=== PATIENT | male | born 1990 | race Caucasian/White ===

== ENCOUNTER 2016-09-02 08:01 | Emergency (ER) | payer OTHER ==
[~2016-09-02] VITALS: Ht 177.8 cm; Wt 79.5 kg
[2016-09-02 08:03] VITALS: BP 123/76; PULSE 82; RESP 14; O2SAT 98
--- NOTE | 2016-09-02 08:11 | ED.REPORT ---
HPI-Extremity Problem Lower Date of Service Sep 02, 2016 ED Provider: Noah Yap DO A 25 year old male presents to the ED complaining of puncture wound in right foot. The patient stepped on a nail at a construction site 48 hours ago. Per nurse note, the patient could see the nail poking up through the top of the foot but it did not break the skin. Nursing Notes Stated Complaint: RT FOOT STEPPED ON A NAIL Chief Complaint: Extremity Trauma Nursing Notes Reviewed: Yes Allergies: Coded Allergies: aspirin (Verified Allergy, 09/04/12) Scheduled Ciprofloxacin (Cipro) 500 Mg Tablet 500 MG PO BID Sulfamethoxazole/Trimeth 800-160 mg (Bactrim DS) 1 Each Tablet 1 TABLET PO BID General Time Seen by MD: 08:10 Chief Complaint Foot injury right (Puncture wound) Hx Obtained From: Patient Arrived By: Walk-in Onset Occurred: 2 days ago Symptom Duration: Since onset Recent Healthcare: No recent doctor visit Similar Sx Previous: No Past Medical History Past Medical History None reported. Past Surgical History None reported. 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 Ambulatory Status Independent Review of Systems Review of Systems Note: Puncture in right foot. Complete sys rev & neg: except as marked. Respiratory: Denies: Non-productive cough Physical Exam Initial Vital Signs Vital Signs (First) Date Time Temp Pulse Resp B/P Pulse Ox O2 Delivery O2 Flow Rate FiO2 09/02/16 08:03 36.2 82 14 123/76 98 Room Air Initial VS: Reviewed Puncture inbetween 2nd and 3rd toe on plantar aspect of right foot. Mild erythema in area. No mass swelling. No fluctance. General/Constitutional: Awake, Alert Respiratory / Chest: Atraumatic, Breath sounds NL, Breath sounds = bilat, No respiratory distress, No rales, No rhonchi, No wheezing Skin: Atraumatic, Color NL, Warm, Dry Neurologic: Oriented X3, Speech NL Head / Eyes: Atraumatic, Normocephalic, PERRL, EOMI ENT: Atraumatic, Mucous membranes moist Neck: Atraumatic, Full range of motion Abdomen: Atraumatic, No guarding, No rebound Back: Atraumatic, Full range of motion Upper Extremity / MS: Atraumatic, Full range of motion Wrist / Hand: Atraumatic, Full range of motion Interpretation & Diagnostics X-Ray Interpretation Xray Interpretation: Foot Xray Impression: No fracture, no gas, no foreign body. Interpretation / Wet Read by: Wet read ED physician ([id number]) Re-Eval/Medical Decision Med Decision/Clinical Course Bactrim and ciprofloxacin prescribed. Same-day follow-up with podiatry initiated. return precautions given Re-Evaluation/Progress : Time of Eval: 08:35 Re-Evaluation/Progress Note: Rechecked patient. Explained plan for patient to see [facility]. Patient understands and agrees with the plan. All questions addressed. Consultation : Referral / Consult Name: Mitch Hendricks DPM Consulted With: Orthopedic Call Returned at: 08:34 Operations Label Clerk: Will see patient, Agrees with eval, Agrees with plan Note: Discussed patient case with Dr. Hendricks who agrees to see the patient. Counseled Regarding: Diagnosis, Lab results, Need for follow-up, When/why to return to ED Discharge & Departure Impression: Primary Impression: Puncture wound Disposition: Home Discharge Condition All VS Reviewed: Yes Condition: Improved Additional Instructions: Go directly to podiatry. Take ciprofloxacin and Bactrim as prescribed. Return to the ER or follow up with podiatry as needed for worsening symptoms. Referrals: OTHER,PHYSICIAN (PCP) Maraibe Attestation Portions of this note were transcribed by Hermann Ron. I, Dr. Yap personally performed the history, physical exam and medical decision-making; I reviewed and confirmed the accuracy of the information in the transcribed note. Signed by: Abhay Bolton, 09/02/2016 0853. copies to: SVITLANA,Noah Guerra DO Sep 02, 2016 08:11 Hermann Ron Sep 02, 2016 08:21
[2016-09-02] MEDS ORDERED: Trimethoprim-Sulfa 160 mg-800 mg Tablet PO ONE (08:25)
[2016-09-02] MEDS ORDERED: SULF1TAB7 PO (08:42)
[2016-09-02] MEDS ORDERED: CIPR-231 PO (08:42)
--- NOTE | 2016-09-02 09:40 | DRSVH ---
PROCEDURE: X-RAY RIGHT FOOT COMPLETE, MINIMUM THREE VIEWS ([id number]) INDICATIONS: step on nail TECHNIQUE: 3 views of the foot were acquired. COMPARISON: None. FINDINGS: Bones: No fractures or dislocations. No suspicious bony lesions. Soft tissues: No tibiotalar joint effusion. Achilles tendon appears normal. IMPRESSION: Although no bony erosions are identified, plain film radiography is relatively insensiti ve in the acute phases of osteomyelitis and may not demonstrate radiographic changes for 15 days. If acute osteomyelitis is of clinical concern, nuclear medicine regional bone scan or MRI is recommende d. Dictated by: Toby Bai [facility] Interpreted: Idalmis Amin MD on 09/02/2016 at 9:39 Transcribed by: UNIQUE on 09/02/2016 at 9:40 Approved by: Idalmis Amin M.D. on 09/04/2016 at 16:04
== END 2016-09-02 08:45 | disposition home or self-care (01) ==
LOC: SED 08:01
DX: S91.331A Puncture wound without foreign body, right foot, initial encounter (principal); W45.0XXA Nail entering through skin, initial encounter; Y93.89 Activity, other specified; Y92.69 Other specified industrial and construction area as the place of occurrence of the external cause; Y99.8 Other external cause status; Z88.8 Allergy status to other drugs, medicaments and biological substances

== ENCOUNTER 2016-09-04 17:17 | Emergency (ER) | payer OTHER ==
[~2016-09-04] VITALS: Ht 177.8 cm; Wt 86.4 kg
[~2016-09-04 17:17] MED LIST: CIPR-231 PO; SULF1TAB7 PO
[2016-09-04 17:32] VITALS: BP 136/83; PULSE 89; RESP 16; O2SAT 99
[2016-09-04 18:44] LABS: BASOPHILS % (AUTO) 0.3 % (0-3); EOSINOPHILS % (AUTO) 2.7 % (0-5); MONOCYTES % (AUTO) 5.4 % (4-12); Mean Corpuscular Hemoglobin 28.5 pg (27.0-35.0); Mean Corpuscular Volume 83.3 fL (81-100); NEUTROPHILS % (AUTO) 66.1 % (40-74); Platelet Count 301 bil/L (150-400)
--- NOTE | 2016-09-04 19:18 | ED.REPORT ---
HPI-Headache Date of Service Sep 04, 2016 ED Provider: Mike Olsen MD Pt is a 25 y/o male presenting to the ED c/o vague headache and myalgias onset today. He states he stepped on nail 4 days ago and was referred to a gunnery/ordnance officer Dr. Ruiz who reviewed his x-rays and told him to come to the ED if he developed any other symptoms to rule out infection. Pt denies fever, chills, N/V /D, abdominal pain. Nursing Notes Stated Complaint: BODY ACHES, HEADACHES Chief Complaint: Headache Nursing Notes Reviewed: Yes Allergies: Coded Allergies: aspirin (Verified Allergy, Unknown, 09/04/16) No Active Prescriptions or Reported Meds General Time Seen by MD: 18:45 Chief Complaint Headache Hx Obtained From: Patient Arrived By: Walk-in Sudden in Onset?: No Onset Occurred: 9 - 12 hours ago Symptom Duration: Since onset Location: : Generalized Quality: Aching Severity: Current: Mild Severity: Maximum: Mild Recent Healthcare: Recent doctor visit Past Medical History Past Medical History None reported. Past Surgical History None reported. 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 Ambulatory Status Independent Review of Systems Constitutional: Denies: Chills, Fever, Lethargy, Weakness - generalized GI: Denies: Abdominal pain, Diarrhea, Nausea, Vomiting Musculoskeletal: Reports: Myalgia, Denies: Extremity pain, Extremity swelling Skin: Denies Itching, Denies Rash Neurologic: Reports: Headache, Denies: Abnormal movement, Bladder dysfunction, Bowel dysfunction, Change LOC , Confusion, Dizziness, Focal weakness, Lightheaded, Numbness, Problem walking, Seizure, Shaking, Slurred speech, Spinning sensation, Syncope, Unable to speak, Vision change, Weakness Complete sys rev & neg: except as marked. Physical Exam Initial Vital Signs Vital Signs (First) Date Time Temp Pulse Resp B/P Pulse Ox O2 Delivery O2 Flow Rate FiO2 09/04/16 17:32 36.6 89 16 136/83 99 Room Air Initial VS: Reviewed ENT: Mucous membranes moist, Conjunctiva normal, No scleral icterus Respiratory: Breath sounds normal, Clear to auscultation, No respiratory distress Cardiovascular: Regular rate & rhythm, Heart sounds normal, Intact distal pulses Abdomen / GI: Soft, Non-tender, No guarding, No rebound, No distention Skin: Warm, Dry, No cyanosis Psychiatric: Mood/affect normal, Behavior normal, Normal thought content General/Constitutional: Awake, Alert, No acute distress, Well appearing, Cooperative, Not toxic appearing Head / Eyes: Atraumatic, Normocephalic, PERRL, EOMI Neck: Atraumatic, Supple, No meningismus, Full range of motion, Non-tender, No midline vertebral tend Neurologic: Oriented X3, Speech NL, No motor deficits, No sensory deficits, CN II - XII intact, Cerebellar NL, Memory NL Lower Extremity / Pelvis / MS: Full range of motion, No swelling, Non-tender, No erythema, No deformity, Neurologic intact, Vascular intact, No ligamentous injury, Tendon function NL, No compartment syndrome, No edema Superficial puncture wound about the plantar aspect of the left foot. No evidence of infection Interpretation & Diagnostics Lab Results Interpretation Result Diagram: 09/04/16183109/04/162 Test 09/04/16 18:32 White Blood Count 9.4th/mm3 (3.8-10.1) Red Blood Count 5.68mil/mm3 (4.40-5.80) Hemoglobin 16.2g/dL (13.8-17.2) Hematocrit 47.3% (41.0-50.0) Mean Corpuscular Volume 83.3fL (81-100) Mean Corpuscular Hemoglobin 28.5pg (27.0-35.0) Mean Corpuscular Hemoglobin Concent 34.2% (32.0-37.0) Red Cell Distribution Width 12.7% (12.3-15.4) Platelet Count 301bil/L (150-400) Neutrophils (%) (Auto) 66.1% (40-74) Lymphocytes (%) (Auto) 25.4% (14-46) Monocytes (%) (Auto) 5.4% (4-12) Eosinophils (%) (Auto) 2.7% (0-5) Basophils (%) (Auto) 0.3% (0-3) Sodium Level 139mEq/L (134-144) Potassium Level 4.9mEq/L (3.5-5.2) Chloride Level 101mEq/L (97-108) Carbon Dioxide Level 24mmol/L (18-29) Blood Urea Nitrogen 11mg/dL (6-20) Creatinine 0.76mg/dL (0.76-1.27) Estimat Glomerular Filtration Rate 131mL/min (>59) Glucose Level 96mg/dL (60-99) Calcium Level 9.2mg/dL (8.5-10.1) Total Bilirubin 0.3mg/dL (0.0-1.2) Aspartate Amino Transf (AST/SGOT) 15U/L (0-50) Alanine Aminotransferase (ALT/SGPT) 16U/L (0-44) Alkaline Phosphatase 89U/L (25-150) Total Protein 7.4g/dL (6.4-8.4) Albumin 4.6g/dL (3.4-5.0) Hold Hill Top Tube Received (Received) Re-Eval/Medical Decision Med Decision/Clinical Course Pt is a 25 y/o male presenting to the ED c/o vague headache and myalgias onset today. He states he stepped on nail 4 days ago and was referred to a gunnery/ordnance officer Dr. Ruiz who reviewed his x-rays and told him to come to the ED if he developed any other symptoms to rule out infection. Pt denies fever, chills, N/V /D, abdominal pain. Labs notable as below: CBC: unremarkable CMP: unremarkable X-ray from 2 days ago was reviewed and demonstrated no foreign body. Elevation of the foot reveals absolutely no evidence of abscess, cellulitis, foreign body or infectious process. The patient is afebrile, nontoxic appearing , neurologically intact without any evidence of trauma. Patient states that he came in due to precaution as he been told to return should he develop any new signs or symptoms. At this time I see absolutely no evidence that the patient is developing systemic infectious process. His vague symptoms are suggestive of possible flulike illness so that being said he is remarkably well-appearing. I see no indication for further workup at this time. Patient was discharged in good condition. Follow-up and return precautions were reviewed in detail. His tetanus status is up-to-date. Re-Evaluation/Progress : Time of Eval: 19:38 Re-Evaluation/Progress Note: Pt rechecked. Informed pt of plan for treatment. Pt understands and agrees with plan for treatment. F/U instructions and RTER warnings given. All questions addressed. Counseled Regarding: Diagnosis, Lab results, Need for follow-up, When/why to return to ED Discharge & Departure Impression: Primary Impression: Puncture wound Additional Impressions: Headache Headache type: unspecified Headache chronicity pattern: unspecified pattern Intractability: not intractable Qualified Code: R51 - Headache Body aches Disposition: Home Discharge Condition All VS Reviewed: Yes Condition: Stable Additional Instructions: Thank you for seeking care at emergency room. Our primary goal today in the ED was to evaluate you for any life-threatening conditions. Your evaluation was reassuring. You should follow-up with your primary doctor in the next week. You should return to the ED immediately if you develop redness or swelling of your feet, fevers, vomiting, cough, shortness of breath, chest pain, lightheadedness, weakness or any other concerning signs or symptoms. Thank you for letting us partake in your care today. Referrals: [facility] (PCP) Abhay Attestation Portions of this note were transcribed by Eran Tenorio. I, Dr. Olsen personally performed the history, physical exam and medical decision-making; I reviewed and confirmed the accuracy of the information in the transcribed note. Signed by Abhay James, 09/04/161999 copies to: [facility] Mike Olsen MD Sep 04, 2016 19:18 ERAN TENORIO Sep 04, 2016 19:41
[2016-09-04 19:59] VITALS: BP 120/74; PULSE 77; RESP 16; O2SAT 97
== END 2016-09-04 19:50 | disposition home or self-care (01) ==
LOC: SED 17:17
DX: S91.302D Unspecified open wound, left foot, subsequent encounter (principal); R51 Headache; W45.0XXD Nail entering through skin, subsequent encounter; Y93.9 Activity, unspecified; Y92.9 Unspecified place or not applicable; Y99.8 Other external cause status; Z79.82 Long term (current) use of aspirin